=== PATIENT | male | born 1950 | race Caucasian/White ===

== ENCOUNTER 2025-01-02 07:56 | Emergency (ER) | payer MEDICARE, OTHER ==
[2025-01-02] MEDS: Lidocaine/Epineph/Tetracaine 3 ML Syringe TOP ONE (08:35)
[2025-01-02] MEDS: Diphtheria,Pertussis(Acell),Tetanus Vaccine 0.5 ML Syringe IM ONE (08:36)
[2025-01-02] MEDS ORDERED: Lidocaine 1% 5 ML VIAL INFILT STA (09:14)
[2025-01-02] MEDS: Lidocaine 0.5% 50 ML SDV INFILT STA (09:17)
== END 2025-01-02 10:22 | disposition home or self-care (01) ==
LOC: JP.ED 07:56
DX: S60.352A Superficial foreign body of left thumb, initial encounter (principal); Z23 Encounter for immunization; Z88.8 Allergy status to other drugs, medicaments and biological substances; Z79.899 Other long term (current) drug therapy; W45.8XXA Other foreign body or object entering through skin, initial encounter
CPT/HCPCS: 90471; 90715; 99283; A9270; 99282